=== PATIENT | female | born 1930 ===

== ENCOUNTER 2017-07-13 17:11 | Inpatient (IN) | payer MEDICARE ==
[2017-07-13] MEDS ORDERED: Morphine 2 MG/ML SYRINGE ONE (17:32)
[2017-07-13] MEDS ORDERED: Ondansetron HCl/PF 4 MG/2 ML Vial ONE ×2 (17:32→18:49)
[2017-07-13 17:43] LABS: #Basophils 0.1 thou/uL (0.0-0.2); #Eosinphils 0.2 thou/uL (0.0-0.7); #Lymphocytes 4.4 thou/uL (1.20-3.40); #Monocytes 0.7 thou/uL (0.11-0.59); #Neutrophils 7.7 thou/uL (1.40-6.50); %Basophils 1.1 % (0.0-1.0); %Eosinophils 1.4 % (0.0-10.0); %Lymphocytes 33.5 % (21.0-51.0); %Monocytes 5.1 % (0.0-10.0); Hematocrit 47.8 % (36.0-47.0); Mean Platelet Volume 10.6 fL (7.4-10.4); Red Blood Cell (RBC) Count 4.82 mill/uL (4.20-5.40); White Blood Cell (WBC) Count 13.1 thou/uL (4.8-10.8)
[2017-07-13 17:50] LABS: Prothrombin Time 13.1 SEC (12.0-14.7)
[2017-07-13 17:51] LABS: PTT 19.9 SEC (22.9-36.1)
[2017-07-13 18:07] LABS: Troponin I 0.053 ng/mL (< 0.028)
[2017-07-13 18:28] LABS: ALT (SGPT) 16 U/L (8-55); AST (SGOT) 32 U/L (5-34); Alkaline Phosphatase 72 U/L (40-150); Anion Gap 21 mmol/L (10-20); BUN (Urea Nitrogen) 36 mg/dL (9.8-20.1); Bilirubin, Total 0.9 mg/dL (0.2-1.2); CK (CPK) 73 U/L (29-168); Calc. Creatinine Clearance 0 mL/min (70-130); Calcium 9.7 mg/dL (7.8-10.44); Carbon Dioxide 17 mmol/L (23-31); Chloride 109 mmol/L (98-107); Estimated GFR-MDRD 27; Globulin 2.9 g/dL (2.4-3.5); Lipase 17 U/L (8-78); Protein, Total 6.8 g/dL (6.0-8.3)
[2017-07-13 19:26] LABS: Lactic Acid - Sepsis 4.1 mmol/L (0.5-2.2)
[2017-07-13 19:35] LABS: Bilirubin Small (Negative); Blood, Urine Negative (Negative); Glucose, Urine (Dipstick) Negative (Negative); Ketone, Urine 15 mg/dL (Negative); Nitrite Negative (Negative); Protein, Urine (Dipstick) Trace mg/dL (Neg-Trace)
[2017-07-13] MEDS ORDERED: Promethazine HCl 25 MG/ML VIAL ONE (20:01)
--- NOTE | 2017-07-13 20:12 | RAD ---
AP VIEW CHEST: 07/13/17 HISTORY: Nausea and vomiting. AP view chest is obtained. There is calcification over the aorta seen. The lungs are well aerated. No evidence of effusions, pn eumonia or pneumothorax seen. Some cardiomegaly is noted. Bilateral acromioclavicular joint degenerative changes seen. IMPRESSION: Mild cardiomegaly. POS: [facility]
--- NOTE | 2017-07-13 20:42 | CT ---
NONCONTRAST ENHANCED CT IMAGES ABDOMEN AND PELVIS 07/13/17 HISTORY: Nausea and vomiting. Noncontrast enhanced CT images of the abdomen and pelvis is performed. Unfortunately, IV and oral co ntrast was not given. This significantly decreases the sensitivity for detection of pathology includ ing evaluation of the GI tract and solid organs. A tiny left sided pleural effusion is seen. Some mi nimal interstitial fibrotic changes are seen in the lung parenchyma. There is a small area of soft t issue density seen in the right middle lobe too small to characterize. Calcification of the mitral annulus is seen. Coronary artery calcification is also seen. Descending aortic calcifications seen. The liver and spleen are unremarkable. The common bile duct is markedly dilated. The gallbladder def initively is not visualized. Has this patient had a previous cholecystectomy? Surgical chase not s een. Calcification of the abdominal aorta, SMA and celiac arteries seen. Bilateral renal artery calcification is also seen. No evidence of periaortic lymphadenopathy seen. No dilated loops of small bowel seen. A large amount of stool is seen in the colon. Descending and sigmoid colonic diverticulosis is seen. IMPRESSION: 1. Markedly dilated common bile duct. This may be due to longstanding previous cholecystectomy. 2. Large amount of stool seen in the colon with air fluid levels seen in the proximal colon. 3. Extensive descending and sigmoid colonic diverticulosis. 4. No obvious evidence of renal calculi. 5. Exam is limited due to the fact that oral and IV contrast was not given. This does decrease the sensitivity for detection of pathology in the abdomen and pelvis. POS: [facility]
[2017-07-13] MEDS ORDERED: Ondansetron HCl/PF 4 MG/2 ML Vial IVP PRN (21:26)
[2017-07-13] MEDS ORDERED: Sodium Chloride 0.9% 1,000 ML IV SCH (21:26)
[2017-07-13] MEDS ORDERED: Ondansetron ODT 4 MG TAB SL PRN (21:26)
[2017-07-13] MEDS ORDERED: cloNIDine 0.1 MG TAB PO PRN (21:37)
[2017-07-13] MEDS ORDERED: hydrALAZINE 20 MG/ML VIAL SLOW IVP PRN (21:37)
[2017-07-13] MEDS ORDERED: Ondansetron ODT 4 MG TAB PO PRN (21:37)
[2017-07-13] MEDS ORDERED: Acetaminophen 500 MG TAB PO PRN (21:37)
[2017-07-13] MEDS ORDERED: Famotidine/PF 20 mg/2ml Vial SLOW IVP SCH (21:45)
[2017-07-13] MEDS: Sodium Chloride 0.9% 1,000 ML IV SCH (23:42)
[2017-07-14] MEDS: Morphine 2 MG/ML SYRINGE SLOW IVP PRN ×3 (00:35→06:47)
[2017-07-14] MEDS: Ondansetron HCl/PF 4 MG/2 ML Vial IVP PRN ×2 (00:35→06:49)
[2017-07-14 01:08] LABS: Troponin I 0.083 ng/mL (< 0.028)
--- NOTE | 2017-07-14 02:13 | HP ---
DATE OF ADMISSION: 07/13/2017 PRIMARY CARE PHYSICIAN: Davian Avalos M.D. CHIEF COMPLAINT: Nausea and vomiting. HISTORY OF PRESENT ILLNESS: This is an 86-year-old, female, who presents to [facility] Emergency Department from [facility], [place] where patient is a current resident with her . The patient developed sudden nausea, vomiting, and abdominal pain, and was unable to hold down any liquids or food. The history is obtained after discussions with ER attending as well as the patient's daughter at the bedside as patient has advanced Alzheimer dementia and is unable to provide a cohesive history. The patient apparently was having increased abdominal pain without spe cific history of diarrhea, which abruptly began on the day of presentation. No specific travel hist ory, residents with other similar symptoms, trauma, injury or change to her chronic medication regim en. Patient denies any specific dysuria, hematochezia or hematuria. The patient denied any recent abdominal procedures or surgeries. The daughter does state patient had her upper teeth pulled x12 i n preparation for new dentures. The patient has had some difficulty with eating and decreased appet ite after the procedure. In the emergency room, the patient underwent general evaluation including CT imaging of the abdomen and pelvis showing no acute process. Portable chest imaging also showed n o acute infiltrates. The patient received IV morphine sulfate x8 mg total in addition to Zofran 16 mg total and normal saline x1 liter. The patient was referred to the Hospitalist Service for evalua tion. PAST MEDICAL HISTORY: 1. Hypothyroidism. 2. Gastroesophageal reflux. 3. Hyperlipidemia. 4. Seasonal allergies. 5. Hypertension. 6. Advanced Alzheimer dementia. PAST SURGICAL HISTORY: 1. Status post partial dentures with multiple teeth extractions. 2. Status post hysterectomy. CURRENT MEDICATIONS: 1. Levothyroxine 112 mcg 1 tab p.o. daily. 2. Omeprazole 20 mg 1 tab p.o. daily. 3. Vytorin 10/20 mg 1 tab p.o. daily. 4. Singulair 10 mg 1 tab p.o. daily. 5. Amlodipine/valsartan/HCTZ 10/320/25 mg 1 tab p.o. daily. 6. Aspirin 81 mg 1 tab p.o. daily. ALLERGIES: To SULFA AND PENICILLIN. FAMILY HISTORY: No inheritable diseases per family report. SOCIAL HISTORY: Patient resides at [facility]. Uses rolling walker for ambulation. No current a lcohol, tobacco or illicit drug use. . Accompanied by her daughter in the hospital. REVIEW OF SYSTEMS: The following complete review of systems was negative, unless otherwise mentione d in the HPI or below: Constitutional: Weight loss or gain, ability to conduct usual activities. Skin: Rash, itching. Eyes: Double vision, pain. ENT/Mouth: Nose bleeding, neck stiffness, pain, tenderness. Cardiovascular: Palpitations, dyspnea on exertion, orthopnea. Respiratory: Shortness of breath, wheezing, cough, hemoptysis, fever or night sweats. Gastrointestinal: Poor appetite, abdominal pain, heartburn, nausea, vomiting, constipation, or diar pa. Genitourinary: Urgency, frequency, dysuria, nocturia. Musculoskeletal: Pain, swelling. Neurologic/Psychiatric: Anxiety, depression. Allergy/Immunologic: Skin rash, bleeding tendency. Otherwise negative except as stated per HPI. PHYSICAL EXAMINATION: VITAL SIGNS: On admission, blood pressure 133/65, pulse 57, respiratory rate 16, temperature 98 deg adeline Fahrenheit, O2 saturation 98% on room air. GENERAL APPEARANCE: This is an 86-year-old, female, alert and oriented x1, pleasant, in m ild distress. HEENT: Pupils are equal, round, and reactive to light and accommodation. Extraocular muscles are i ntact. No scleral icterus. No conjunctival injection. Nares patent. OP is clear. Oral mucosa dr y appearing. NECK: Supple. No cervical adenopathy, no thyromegaly, no carotid bruits, no JVD appreciated. Cerv ical spine with full active and passive range of motion. No meningeal signs noted. CHEST: Lungs are clear to auscultation bilaterally. CARDIOVASCULAR: S1, S2 with 1-2/6 systolic ejection murmur loudest in the left midsternal border. ABDOMEN: Rounded, soft, nontender, nondistended. Bowel sounds are positive in all 4 quadrants. Th ere is no hepatosplenomegaly, no abdominal bruits, no rebound or guarding appreciated. EXTREMITIES: Warm and dry with fair turgor. No clubbing, cyanosis or asymmetric edema appreciated. Pulses palpable distally at the dorsalis pedis, posterior tibial, and popliteal arteries bilateral ly. Capillary refill less than 2 seconds. NEUROLOGIC: Cranial nerves II-XII are grossly intact. Alert and oriented x1. No gross focal defic its or unilateral symptoms noted. PERTINENT LABORATORY AND X-RAY FINDINGS: Sodium 143, potassium 3.5, chloride 109, CO2 of 17, anion gap of 21, BUN 36, creatinine 1.76 with estimated GFR of 27, glucose 163, lactic acid level of 4.1, calcium 9.7. LFTs within normal limits. Troponin I 0.053. BNP 127 and albumin 3.9. TSH 1.62. CB C showed a white blood cell count of 13.1, hemoglobin 15.9, hematocrit 47.8, MCV 99, platelet count 157 with normal differential. PT 13.1, INR 1.0, PTT 19.9. Urinalysis, positive for ketones. Gareth ble chest x-ray dated 07/13/2017 showed no acute infiltrate. Cardiomegaly noted. EKG dated 017 by my interpretation shows sinus bradycardia with heart rates in the 40s. Attenuated R waves no gwen in the precordial leads. Left axis deviation. T-wave inversion isolated in lead III. No acute ST-T wave changes noted. ASSESSMENT AND PLAN: 1. Nausea and vomiting. The patient will be placed in observation status on the telemetry unit. E tiology unclear, possibly viral syndrome. We will continue intravenous normal saline 100 mL per david r. Antiemetics with Zofran 4 mg IV q.6 hours p.r.n. 2. Acute kidney injury. Suspect secondary to volume depletion. We will continue normal saline as outlined previously. Avoid nephrotoxic agents and contrast media. Hold antihypertensive regimen. Repeat creatinine in the a.m. 3. Lactic acidosis. Suspect secondarily to volume contraction and presentation. Repeat lactate in 3 hours. 4. Elevated troponin I. Mild. Suspect secondarily to acute kidney injury. No evidence to suggest acute coronary syndrome. We will repeat troponin q.3 hours x2. 5. Hypothyroidism. Stable. We will resume levothyroxine 112 mcg p.o. daily. 6. Advanced Alzheimer dementia. We will continue supportive measures. Family members to sit with the patient one on one. 7. Prophylaxis. Sequential compression devices while in bed. Pepcid 20 mg p.o. b.i.d. 8. Code status is FULL. Surrogate medical decision maker is the patient's daughter.
[2017-07-14 04:04] LABS: ALT (SGPT) 19 U/L (8-55); AST (SGOT) 49 U/L (5-34); Alkaline Phosphatase 59 U/L (40-150); Anion Gap 15 mmol/L (10-20); BUN (Urea Nitrogen) 31 mg/dL (9.8-20.1); Bilirubin, Total 1.2 mg/dL (0.2-1.2); Calc. Creatinine Clearance 27 mL/min (70-130); Calcium 8.8 mg/dL (7.8-10.44); Carbon Dioxide 18 mmol/L (23-31); Chloride 113 mmol/L (98-107); Estimated GFR-MDRD 39; Globulin 2.6 g/dL (2.4-3.5); Protein, Total 6.1 g/dL (6.0-8.3)
[2017-07-14 04:07] LABS: Troponin I 0.152 ng/mL (< 0.028)
[2017-07-14 04:10] LABS: Band 25 % (5-11); Hematocrit 45.9 % (36.0-47.0); Mean Platelet Volume 9.5 fL (7.4-10.4); Neutrophil 70 % (42-75); Red Blood Cell (RBC) Count 4.68 mill/uL (4.20-5.40); White Blood Cell (WBC) Count 29.5 thou/uL (4.8-10.8)
[2017-07-14] MEDS ORDERED: Ketorolac Tromethamine 30 MG/ML VIAL IVP SCH ×2 (05:30→09:45)
[2017-07-14] MEDS ORDERED: Famotidine/PF 20 mg/2ml Vial SLOW IVP SCH (09:00)
[2017-07-14] MEDS: Sodium Chloride 0.9% 1,000 ML IV SCH (09:56)
[2017-07-14] MEDS ORDERED: Sodium Chloride 0.9% 1,000 ML IV SCH (10:49)
--- NOTE | 2017-07-14 10:59 | PDOC.PN ---
- Subjective Encounter Start Date: 07/14/17 Encounter Start Time: 10:40 Subjective: f/u abd pain, n/v. c/o severe abd pain and had one loose BM last pm. -: Pain is diffuse, cramping and not relieved with Toradol. No documented -: fever but WBC 29.5 and lactate 3.5. - Objective Resuscitation Status: Resuscitation Status FULL:Full Resuscitation MAR Reviewed: Yes Vital Signs & Weight: Vital Signs (12 hours) Temp Pulse Resp BP Pulse Ox 07/14/17 04:00 98.9 F 79 20 143/71 H 97 Weight Weight 120 lb 6.4 oz I&O: 07/13/17 07/14/17 07/15/17 06:59 06:59 06:59 Intake Total 0 725.5 Output Total 250 Balance -250 725.5 Result Diagrams: 07/14/17 03:24 07/14/17 03:24 Additional Labs: Laboratory Tests 07/13/17 07/13/17 07/13/17 17:24 17:28 17:28 WBC Plt Count Band Neuts % (Manual) Carbon Dioxide 17 L Creatinine 1.76 H Lactic Acid AST 32 ALT 16 Troponin I B-Natriuretic Peptide 127.2 H TSH 3rd Generation 1.6170 07/13/17 07/13/17 07/13/17 17:28 17:28 19:00 WBC 13.1 H Plt Count 157 Band Neuts % (Manual) Carbon Dioxide Creatinine Lactic Acid 4.1 H* AST ALT Troponin I 0.053 H B-Natriuretic Peptide TSH 3rd Generation 07/13/17 07/14/17 07/14/17 22:53 00:31 03:24 WBC Plt Count Band Neuts % (Manual) Carbon Dioxide Creatinine Lactic Acid 3.5 H AST ALT Troponin I 0.083 H 0.152 H B-Natriuretic Peptide TSH 3rd Generation 07/14/17 07/14/17 03:24 03:24 WBC Plt Count Band Neuts % (Manual) 25 H Carbon Dioxide Creatinine Lactic Acid AST 49 H ALT 19 Troponin I B-Natriuretic Peptide TSH 3rd Generation Radiology Reviewed by me: Yes (CT abd/pelv non-contr - no acute findings, dilated CBD, colon diverticulosi) EKG Reviewed by me: Yes (Tele - SR with elza) Phys Exam - Physical Examination moderate distress, moaning in pain HEENT: PERRLA, oral pharynx no lesions Neck: no JVD, supple Respiratory: no wheezing, clear to auscultation bilateral Cardiovascular: RRR mild TTP diffusely Gastrointestinal: soft, no distention, positive bowel sounds Musculoskeletal: no edema, pulses present Neurological: normal sensation, moves all 4 limbs Skin: normal turgor, cap refill <2 seconds Dx/Plan (1) Sepsis Code(s): A41.9 - SEPSIS, UNSPECIFIED ORGANISM Status: Acute Comment: Suspected abdominal etiology, start Cefepime 2gm IV q12h and Metronidazole 500mg IV q8h, lactate now, IVF NS 125ml/h, blood cx x 2, repeat CT abd/pelvis with contrast (2) Abdominal pain Code(s): R10.9 - UNSPECIFIED ABDOMINAL PAIN Status: Acute Qualifiers: Abdominal location: generalized Qualified Code(s): R10.84 - Generalized abdominal pain Comment: Repeat CT abd/pelv, consult GI service for recommendations, check RUQ sono due to dilated CBD on prior CT imaging, Morphine Sulfate 4mg IV q2h prn (3) Nausea & vomiting Code(s): R11.2 - NAUSEA WITH VOMITING, UNSPECIFIED Status: Acute Comment: Zofran 8mg IV q6h prn, NPO except meds and sips H2O (4) ETHAN (acute kidney injury) Code(s): N17.9 - ACUTE KIDNEY FAILURE, UNSPECIFIED Status: Acute Comment: Continue IVF NS, limit nephrotoxic meds and contrast (5) Lactic acidosis Code(s): E87.2 - ACIDOSIS Status: Acute Comment: Secondary to #1, see above (6) Elevated troponin I level Code(s): R74.8 - ABNORMAL LEVELS OF OTHER SERUM ENZYMES Status: Acute Comment: Suspect demand state, ASA 325mg x 1 now (7) Alzheimer's dementia Code(s): G30.9 - ALZHEIMER'S DISEASE, UNSPECIFIED Status: Chronic Comment: Supportive, family for 1:1 - Plan plan discussed w/ family, continue antibiotics, social service manager, DVT proph w/ SCDs Start IV abx for sepsis, Cefepime and Flagyl -: IVF NS at 125ml/h -: Consult GI service -: CT abd/pel and RUQ sono now -: Morphine Sulfate 4mg IV q2h prn * Convert to inpt status * AM lab: CMP, CBC
[2017-07-14] MEDS ORDERED: metroNIDAZOLE 500 MG in Premix Bag 1 BAG IVPB SCH (11:00)
[2017-07-14] MEDS ORDERED: Aspirin 325 MG TAB PO SCH ×2 (11:00)
[2017-07-14 11:49] LABS: Lactic Acid - Sepsis 3.4 mmol/L (0.5-2.2)
[2017-07-14 13:05] VITALS: BP 149/65; TEMP 98.2
[2017-07-14 13:28] LABS: Prothrombin Time 15.4 SEC (12.0-14.7)
--- NOTE | 2017-07-14 13:53 | PDOC.EVN ---
Event Note - Event Note Event Note: RUQ sono showing pneumotosis of portal vein. Stat CT abd/pel showing pneumotosis of L colon wall likely infectious/perforation with likely ischemia. Gen surgery consulted for stat evaluation for surgical evaluation. Dr. Mackenzie notified and planning urgent laparotomy. Updated family at bedside of plan and daughter reports pt is a DNR.
[2017-07-14] MEDS ORDERED: Fentanyl 100 MCG/2 ML VIAL ONE ×2 (14:07→16:12)
--- NOTE | 2017-07-14 14:10 | ULT ---
GALLBLADDER ULTRASOUND: HISTORY: Dilated common bile duct. Right upper quadrant pain. COMPARISON: None. TECHNIQUE: Utilizing a Multi-Hertz transducer, sonographic imaging of the right upper quadrant was performed in the longitudinal and transverse plane. FINDINGS: The pancreas is obscured by bowel gas. Heterogeneous echotexture of the liver. There is increased echogenicity within the main portal vein , along the tributaries of the portal vein, suggesting portal venous gas. The possibility of pneuma tosis was raised. The right kidney has a normal cortical echotexture. No hydronephrosis. The right kidney measures 4 .2 x 9.2 x 4.4 cm. Gallbladder is not appreciated. Common bile duct diameter is 1.5 cm. IMPRESSION: 1. Possible air in the portal venous system. Correlate for pneumatosis. Abdomen and pelvis CT is recommended. 2. Prominent common bile duct. The possibility of choledocholithiasis cannot be excluded. The results of the study were discussed with Dr. Aquino on 07/14/2017 at 11;58 a.m. CODE CR POS: [facility]
--- NOTE | 2017-07-14 14:11 | CT ---
ABDOMEN CT WITH CONTRAST PELVIC CT WITH CONTRAST: History: Abdominal pain. High lactate levels. Abnormal right upper quadrant ultrasound. Comparison: None. Technique: Abdomen and pelvic CT are performed with IV contrast. Enteric contrast was not administer ed. Coronal reformatted images are submitted for interpretation. FINDINGS: ABDOMEN CT: Chronic changes in the lung bases. Heart is enlarged. There are coronary calcifications. There is fl uid in the visualized esophagus. Visualized aorta has atherosclerosis. No aneurysm or dissection. No periaortic fat stranding. Symmet josafat attenuation of the psoas muscles. Intra and extrahepatic portal vein is patent. There is air attenuation along the periphery of the li reece compatible with portal venous air. No enhancing masses in the liver. The intra and extrahepatic biliary system is dilated. Obvious masses are not appreciated. No evidence of choledocholithiasis. G allbladder is surgically absent. Spleen, pancreas, and adrenal glands have appropriate enhancement. Symmetric enhancement of the kidneys. Bilaterally no obstructive uropathy. No mesenteric mass, lymphadenopathy or free fluid. Trace amount of fluid in both pericolic gutters. Limited evaluation of the alimentary canal due to lack of oral contrast. There is evidence of pneumo tosis small bowel loop in the left abdomen with extraluminal air. There is sigmoid colon diverticulo sis and distal descending colon diverticulosis, without evidence of diverticulitis. PELVIC CT: Urinary bladder is unremarkable. No pelvic mass, lymphadenopathy, free air of free fluid. Surgically absent uterus. There are no osteoblastic or osteolytic lesions. IMPRESSION: 1. Portal venous air. 2. Pneumotosis in the the small bowel with adjancent extraluminal air. 3. Prominent common bile duct likely due to reservoir effect from surgically absent gallbladder. 4. Diverticulosis without evidence of diverticulitis. 5. Results of study discussed with Dr. Aquino 07-14-17 at 12:58 p.m. Code CR POS: [facility]
[2017-07-14 14:50] LABS: Anion Gap 15 mmol/L (10-20); BUN (Urea Nitrogen) 27 mg/dL (9.8-20.1); Calc. Creatinine Clearance 29 mL/min (70-130); Calcium 8.6 mg/dL (7.8-10.44); Carbon Dioxide 18 mmol/L (23-31); Chloride 116 mmol/L (98-107); Estimated GFR-MDRD 43; Magnesium 1.8 mg/dL (1.6-2.6)
[2017-07-14] MEDS ORDERED: PHENYLEPHRINE-NS 100 MCG/ML 10 ML SYRINGE ONE (14:59)
[2017-07-14] MEDS ORDERED: Propofol 200 MG/20 ML VIAL ONE (14:59)
[2017-07-14] MEDS ORDERED: Lidocaine 1% PF 5 ML VIAL ONE (14:59)
[2017-07-14] MEDS ORDERED: Succinylcholine Chloride 20 MG/ML 10 ml SYRINGE FS ONE (14:59)
[2017-07-14] MEDS ORDERED: Iopamidol 370 76% 100 ML VIAL ONE (15:24)
[2017-07-14] MEDS ORDERED: SUGAMMADEX SODIUM 500 MG/5 ML VIAL ONE (15:27)
[2017-07-14] MEDS ORDERED: Promethazine HCl 25 MG/ML VIAL SLOW IVP PRN ×2 (15:51→16:07)
[2017-07-14] MEDS ORDERED: Ondansetron HCl/PF 4 MG/2 ML Vial IVP PRN ×2 (15:51→16:07)
[2017-07-14] MEDS ORDERED: Promethazine HCl 25 MG/ML VIAL IM PRN ×2 (15:51→16:07)
--- NOTE | 2017-07-14 16:49 | CON ---
DATE OF CONSULTATION: 07/14/2017 REQUESTING PHYSICIAN: Dr. Aquino. HISTORY OF PRESENT ILLNESS: This is an 86-year-old woman who was admitted yesterday with acute onset generalized abdominal pain. The patient is unable to give history at the moment and mos t of the history is provided by her [id number] who is at bedside. Apparently, the patient had had some intermittent episodes of diarrhea over the last 2 weeks; however, none since yesterday. Sh e did have a large bowel movement overnight, which was loose and slightly blood tinged. Abdominal p ain has intensified overnight. She has no fevers or chills at the moment. PAST MEDICAL HISTORY: Significant for essential hypertension, hyperlipidemia, gastroesophageal refl ux disease, senile dementia of Alzheimer's type, and hypothyroidism. PAST SURGICAL HISTORY: Pertinent for total abdominal hysterectomy as well as cholecystectomy in the distant past. SOCIAL HISTORY: Patient is and resides with her in an assisted living situation. S he has no cigarette smoking, ethanol or illicit drug abuse. She ambulates usually with a walker. FAMILY HISTORY: Noncontributory for this patient's age. PREHOSPITAL MEDICATIONS: Singulair 10 mg p.o. daily, omeprazole 20 mg p.o. daily, levothyroxine 112 mcg p.o. daily, Vytorin 10/20 one p.o. daily, amlodipine/valsartan/HCTZ /25 one p.o. daily, t akes aspirin 81 mg p.o. daily. ALLERGIES: SULFA and PENICILLIN. REVIEW OF SYSTEMS: Could not be obtained at this time. Patient is slightly somnolent and having re ceived some intravenous analgesics. PHYSICAL EXAMINATION: GENERAL: This reveals an 86-year-old normally developed woman who is otherwise slightly confused, b ut interactive, moves all extremities and follows commands. She appears to be in severe acute distr ess secondary to abdominal pain. VITAL SIGNS: Latest vital signs includes blood pressure 149/65, pulse 91, respiration is 20, temper ature 98.2 degrees Fahrenheit, currently maximum temperature in the last 24 hours is 99 degrees Fahr enheit. Oxygen saturation is 93% on room air. HEENT: Reveals normocephalic and atraumatic. Pupils are equal, round, and reactive to light. Oral mucosa is pink though dry with no intraoral lesions noted. She has no jugular venous distention no gwen upon examination. HEART: Reveals irregular rate and rhythm. No murmurs or gallops auscultated. LUNGS: Clear to auscultation bilaterally. Breathing is regular and unlabored. ABDOMEN: Soft and moderately distended. She has diffuse abdominal tenderness to palpation with chidi ound tenderness present. Liver and spleen are otherwise nonpalpable below costal margins. EXTREMITIES: There is 2+ radial and pedal pulses bilaterally. No ankle edema is present. NEUROLOGIC: Reveals no focal deficits present. PERTINENT LABORATORY DATA: Today includes CBC with 29,500 white blood cells, hemoglobin 15.1, hemat ocrit is 45.9, platelet count is 129,000, differential counts as follows, 70% segmented neutrophils, 25 bands, 1 lymphocyte and 4 monocytes. This is in contrast from the CBC yesterday with 13,100 whi te blood cells. Metabolic profile today includes sodium 142, potassium 3.6, chloride is 113, bicarb dannie 18, BUN 31, creatinine is 1.30, glucose 182, lactic acid today is 3.4, total bilirubin is 1.2, AST and ALT noted at 49 and 19 respectively. Troponin I at 0031 hours this morning was 0.083 and 3 hours later that increased to 0.152. On the cardiac exercise specialist. The patient is having multiple PVCs. I personally reviewed the CT scan of the abdomen and pelvis today which reveals a moderate amount of portal venous gas, pneumatosis intestinalis involving loop of small bowel and also some free perito eusebia fluid. I do not appreciate any pneumoperitoneum. IMPRESSION: 1. Acute severe abdominal pain secondary to likely ischemic bowel necrosis. 2. Acute lactic acidosis secondary to #1. 3. Cardiac arrhythmias. I am unsure if this is acute or chronic in nature. 4. Acute kidney injury, secondary to #1. RECOMMENDATIONS: 1. Exploratory laparotomy with possible bowel resection and indicated procedures. 2. We will correct abnormal electrolytes. 3. In the setting of an acute ischemic bowel necrosis and cardiac arrhythmia, it will be prudent to obtain a DANILO to exclude any onset of mural thrombus which could be nidus of embolism to mesenteric vessels. The above findings and recommendation has been discussed with the patient's [id number] who is p ower of estate planning attorney. She and the patient indicated understanding of information provided. I have answ ered all their questions. The patient's power of estate planning attorney has granted consent for this surgical int ervention. Thank you again Dr. Aquino for allowing me the opportunity to participate in the care of this patient.
[2017-07-14] MEDS ORDERED: Morphine 10 MG/ML VIAL SLOW IVP PRN (18:02)
--- NOTE | 2017-07-14 19:34 | OP ---
DATE OF OPERATION: 07/14/2017 SURGEON: Reno Mackenzie D.O. ANESTHESIA: General endotracheal. ESTIMATED BLOOD LOSS: Less than 5 mL. FLUIDS GIVEN: 500 mL crystalloids. SPONGE AND INSTRUMENT COUNT: Certified as correct x2. COMPLICATIONS: None apparent at time of operation. POSTOPERATIVE DIAGNOSES: 1. Acute abdominal pain with pneumatosis intestinalis: 2. Acute ischemic bowel necrosis. POSTOPERATIVE DIAGNOSES: 1. Acute abdominal pain with pneumatosis intestinalis: 2. Acute ischemic bowel necrosis. 3. Extensive ischemic small bowel and right colonic necrosis. INDICATIONS FOR PROCEDURE: An 86-year-old woman who was admitted with acute onset abdominal pain. Clinical and radiographic examination was consistent with acute ischemic bowel necrosis for which noel steve was brought to the operating room for exploration. Findings are consistent with extensive necrosis of small bowel and the right colon, sparing only lynda roximately 15 cm distal to the ligament of Treitz. DESCRIPTION OF PROCEDURE: Informed consent obtained from the patient's [id number] who is power of tax attorney. The patient was brought to the operating room and placed in supine position. Followi ng general anesthesia, previous Riojas catheter was placed to bedside drain. Abdomen was sterilely p repped and draped in the usual fashion. A midline incision was made using #10 scalpel. The incisio n is carried through subcutaneous tissues maintaining hemostasis using thermocautery. Fascia was in cised in midline using cautery. The peritoneum was grasped x2 with hemostats. The peritoneal cavit y was sharply entered using Metzenbaum scissors. Immediately upon entrance in the peritoneal cavity , extensive amount of bowel necrosis was encountered. We were able to examine the bowel from the li gament of Treitz down to distal approximately 15 cm of viable jejunum. Everything beyond this was c ompletely necrotic extending to the cecum and ascending colon. There was no evidence of perforation . At that juncture, we elected to terminate further exploration as this patient is unlikely to surv hamilton without adequate length of small bowel. Exploration was terminated. All sponges and instrument s were removed and accounted for at this time. The skin incision was closed using a running stitch of #1 single stranded PDS. Sterile dressing was applied. The patient tolerated this operation with out any further complications. She was taken to the postanesthesia care unit in critical condition. Care will be converted to hospice care at this time. Family will be notified.
--- NOTE | 2017-07-14 20:15 | CON ---
DATE OF CONSULTATION: 07/14/2017 REASON FOR CONSULTATION: Abdominal pain, possible bowel ischemia. HISTORY OF PRESENT ILLNESS: Dr. Aquino called me this afternoon at about 11:45 with regards to possib le mesenteric ischemia in Ms. Julienne Kirkland. She presented with acute abdominal pain last night, ding d a noncontrast CT at midnight, showed large amount of stool in the colon and markedly dilated commo n bile duct, diverticulosis. The scan was limited by lack of IV contrast. Today, the patient becam e more acidotic and elevated white count and had ongoing pain despite narcotic pain medications. Th e patient had a CT mesenteric angiogram this afternoon with traces of what was felt to be pneumobili a in the right lobe of the liver. There was no oral contrast given. No obvious pneumatosis , but there are some concerns about pneumatosis in the gastric wall anteriorly to the left, definitely some small bowel loops in the right abdomen. I recommended at that time he initially called me to call General Surgery, apparently they are not the seen the patient yet. The patient has had minimal urine output and poor control of pain since admission. PAST MEDICAL HISTORY: Hypothyroidism, reflux, hyperlipidemia, seasonal allergies, hypertension, adv anced Alzheimer's. PAST SURGICAL HISTORY: Prior denture, prior hysterectomy. HOME MEDICATIONS: Levothyroxine, omeprazole, Vytorin, amlodipine, valsartan, aspirin, and Singulair . ALLERGIES: SULFA AND PENICILLIN. FAMILY HISTORY: Noncontributory. SOCIAL HISTORY: The patient lives at [facility]. REVIEW OF SYSTEMS: On talking with the patient's daughter at bedside, she was doing fine last night , ate dinner, and it was in the evening this began with acute pain with nausea, vomiting, initially thought was possibly gastritis. She worsened overnight apparently. The daughter does state that pe r the patient's , she says a DNR status. PRESENT MEDICATIONS: Tylenol, cefepime, Catapres, Pepcid, metronidazole, Zofran, and normal saline at 125 an hour. PHYSICAL EXAMINATION: VITAL SIGNS: Temperature is 99 early this morning, blood pressure 149/95, pulse 91. LUNGS: Clear. HEART: Regular rate and rhythm. ABDOMEN: Soft, there is not much rebound or guarding. Bowel sounds are nonexistent. There are no masses. The patient is really noncommunicative. LABORATORY DATA AND X-RAY FINDINGS: White count is increased from 13,000 last night to 29,000 today . Hemoglobin 15, platelet count 129. INR 1.2, bicarbonate is 18, 17 last night, anion gap was 17 l ast night. BUN and creatinine were 36 and 1.79. Lactic acid not checked, but it was 4.1 last night . Today, anion gap is 15. BUN and creatinine of 31 and 1.3, bilirubin 4.2, AST and ALT 49 and 19, lipase was not checked last night was 5.9. TSH was normal. CT scan of my findings as above. ASSESSMENT: I suspect the patient has acute mesenteric ischemia of the small bowel. Recommend kari elliott the patient to the ICU, surgical consultation. I have translated to the patient's daughter that she has a very poor prognosis. If indeed this is what is going on, we will wait for Surgery's opin ion, may be they decided to do nothing keep her comfortable. She has advanced dementia. We will wa it for the final CAT scan reading and surgical evaluation. In any event, at this time until that de cision is made, she has been moved to the ICU.
[2017-07-14] MEDS ORDERED: Cefepime 2 GM, Admixture Fee 1 EACH in Sodium Chloride 0.9% 100 ML IVPB SCH (21:00)
--- NOTE | 2017-07-15 02:52 | DIS ---
DATE OF ADMISSION: 07/13/2017 DATE OF DISCHARGE: 07/14/2017 DISCHARGE DIAGNOSES: 1. Sepsis syndrome. 2. Acute extensive ischemic bowel necrosis. 3. Acute abdominal pain with pneumatosis intestinalis. 4. Lactic acidosis secondarily to sepsis syndrome and acute extensive ischemic bowel necrosis. 5. Nausea and vomiting secondary to sepsis syndrome and acute extensive ischemic bowel necrosis. 6. Acute kidney injury. 7. Elevated troponin I secondarily to demand ischemia. 8. Advanced Alzheimer dementia. 9. Leukocytosis with bandemia. CONSULTATIONS: Dr. James with GI service. Dr. Mackenzie with General Surgery service. PERTINENT LAB AND X-RAY FINDINGS: Potassium ranged between 3.3 to 3.6, CO2 ranged between 17 to 18, creatinine ranged between 1.20 to 1.76 with estimated GFR ranging between 27 to 43. Lactic acid le carlos ranged between 3.4 to 4.1. Phosphorus 2.0. Magnesium 1.8. AST ranged between 32 to 49, ALT ra nged between 16 to 19. Troponin I ranged between 0.053 to 0.152. Albumin 3.5. TSH 1.62. Lipase 1 7. CBC showed a white blood cell count ranging between 13.[address] of the abdomen and pelvis dated 07/13/2017 without contrast showed large amount of stool in the colon. Markedly dilated commo n bile duct may be due to longstanding previous cholecystectomy. Extensive descending and sigmoid c olonic diverticulosis. Exam limited due to lack of IV and oral contrast. Portable chest x-ray date d 07/13/2017 showed mild cardiomegaly without acute infiltrate. CT of the abdomen and pelvis with c ontrast dated 07/14/2017 showed portal venous air. Pneumatosis in the small bowel with adjacent ext raluminal air. Prominent common bile duct. Diverticulosis without diverticulitis Abdominal ultras ound dated 07/14/2017 showed air in the portal venous system. Prominent common bile duct. Choledoc holithiasis not excluded. Laparotomy dated 07/14/2017 showed acute pneumatosis intestinalis with ac tonto apache ischemic bowel necrosis with extensive ischemia of the small bowel and right colon. Extensive n ecrosis of small bowel and right colon sparing only approximately 15 cm distal to the ligament of Tr eitz. Please see dictated operative report for full details. HOSPITAL COURSE: Patient was admitted to the telemetry unit after initially presenting with abdomin al pain, nausea and vomiting initially suspected as the gastroenteritis. Patient was placed on IV f luids, antiemetics, and pain control with supportive measures. Patient was also treated for mild ac tonto apache kidney injury with IV fluid hydration and monitor clinically. Initial lactate at the time of ad mission 4.5 decreasing to 3.5 with supportive measures. Patient continued to clinically deteriorate with increasing abdominal pain, unabating to IV pain medication. Patient underwent reimaging after initial CT of the abdomen and pelvis without contrast showed no acute process. Reimaging of the ab domen and pelvis with a sonogram and CT method showed extensive pneumatosis in the portal venous sys tem as well as pneumatosis of the colonic wall concerning for ischemic bowel. Consultation was obta ined by the General Surgery and GI service after findings were noted and patient was noted clinicall y worsening with leukocytosis and worsening abdominal pain. Patient was taken for urgent laparotomy with findings as described previously, including extensive bowel necrosis involving brannon and small i ntestine and sparing approximately 15 cm distal to the ligament of Treitz. Due to patient's extensi ve bowel necrosis, discussions were had with the family regarding comfort care and hospice as no spe cific intervention could be entertained. The patient was continued on morphine sulfate for pain con trol and hospice did evaluate the patient. The family members after discussing with the primary att ending and General Surgery service opted to pursue comfort care through hospice there. The patient was transferred to inpatient hospice with [facility] on 07/14/2017. DISCHARGE MEDICATIONS: None. FOLLOWUP: Patient will follow up with [facility] inpatient setting on 07/14/2017. CONDITION ON DISCHARGE: Terminal. DIET: N.p.o. CODE STATUS: DO NOT RESUSCITATE, DO NOT INTUBATE. DISPOSITION: Discharged to inpatient hospice with [facility] agency on 07/14/2017.
[2017-07-15] MEDS ORDERED: Aspirin 325 MG TAB PO SCH (09:00)
--- OUTSIDE RECORDS SUMMARY | 2017-07-15 12:15 | XMS | Clinical Summary ---
:1930 Author Organization [facility] Address [address] [place] [address] Phone Care Team Providers Name Role Phone , Primary Care Provider Unavailable Allergies Not on File Current Medications Not on file Active Problems Not on file Social History Tobacco Use Types Packs/Day Years Used Date Never Assessed Sex Assigned at Date Recorded Not on file Last Filed Vital Signs Not on file Plan of Treatment Not on file Results Not on filefrom Last 3 Months
== END 2017-07-14 18:51 | disposition hospice, inpatient (51) | DRG 853 ==
LOC: ERS 17:11 → INTOOBSV 19:22 → OBSVTOIN 19:22 → T4-B 19:22 → 2NO 22:42 → CCU 07-14 14:56 → 2NO 07-14 16:11
PROVIDERS: ADMIT Family Medicine; ATTEND Family Medicine
PROC: 0WJP0ZZ Inspection of Gastrointestinal Tract, Open Approach (ICD-10-PCS; principal; 2017-07-14)
DX: A41.9 Sepsis, unspecified organism (principal); K55.011 Focal (segmental) acute (reversible) ischemia of small intestine; N17.9 Acute kidney failure, unspecified; E87.2 Acidosis; K55.031 Focal (segmental) acute (reversible) ischemia of large intestine; G30.9 Alzheimer's disease, unspecified; F02.80 Dementia in other diseases classified elsewhere, unspecified severity, without behavioral disturbance, psychotic disturbance, mood disturbance, and anxiety; I10 Essential (primary) hypertension; E03.9 Hypothyroidism, unspecified; E78.5 Hyperlipidemia, unspecified; K63.89 Other specified diseases of intestine; Z51.5 Encounter for palliative care; K21.9 Gastro-esophageal reflux disease without esophagitis; Z66 Do not resuscitate; E86.0 Dehydration
CPT/HCPCS: 36415; 51701; 71010; 74176; 74177; 76705; 80053; 81003; 82550; 82553; 83605; 83690; 83735; 83880; 84100; 84443; 84484; 85007; 85025; 85027; 85610; 85730; 86850; 86900; 86901; 87040; 93005; 96361; 96365; 96375; 96376; A4216; A4353; J0131; J0692; J1170; J1885; J2001; J2270; J2405; J2550; J2704; J3010; J7050; S0028